=== PATIENT | female | born 1965 | race Hispanic/Latino ===

== ENCOUNTER 2020-06-23 17:15 | Emergency (ER) | payer MEDICARE, MEDICAID ==
[~2020-06-23] VITALS: Ht 162.6 cm; Wt 58.1 kg
[2020-06-23] MEDS ORDERED: TETANUS/DIPHTHERIA TOX ADULT 0.5 ML SYR IM ONE (18:15)
[2020-06-23] MEDS ORDERED: HYDROCODONE/APAP 10MG-325MG TAB PO ONE (18:15)
[2020-06-23] MEDS ORDERED: BACITRACIN ZINC 0.9GM TP ONE ×2 (22:30→22:45)
[2020-06-23] MEDS ORDERED: ACETAMINOPHEN 325 MG TAB PO ONE (22:45)
[2020-06-23] MEDS ORDERED: ACETAMINOPHEN 325 MG TAB ONE (22:48)
[2020-06-24 01:16] VITALS: BP 121/67
== END 2020-06-23 23:18 | disposition home or self-care (01) ==
LOC: ER 18:06
DX: S06.0X1A Concussion with loss of consciousness of 30 minutes or less, initial encounter (principal); W01.0XXA Fall on same level from slipping, tripping and stumbling without subsequent striking against object, initial encounter; Y93.01 Activity, walking, marching and hiking; Y92.512 Supermarket, store or market as the place of occurrence of the external cause; I10 Essential (primary) hypertension; E11.9 Type 2 diabetes mellitus without complications; J44.9 Chronic obstructive pulmonary disease, unspecified
CPT/HCPCS: 70450; 70486; 72125; 72170; 90471; 90714; 99284